=== PATIENT | male | born 1950 | race Caucasian/White ===

== ENCOUNTER 2018-07-16 15:58 | Inpatient (IN) | payer MEDICARE, OTHER ==
[~2018-07-16] VITALS: Ht 182.9 cm; Wt 95.3 kg
--- NOTE | ~2018-07-16 | MORECARE ---
CASE MANAGEMENT DISCHARGE SUMMARY PATIENT: HANNAH SOLOMON UNIT: [id number] ADM DATE: 07/16/18 AGE: 68 : 51 SEX: M ROOM/BED: D.2216 AUTHOR: EMILIANA FORBES PHYSICIAN: REFERRING PHYSICIAN: SIMONE CATALAN MD DATE OF SERVICE: 07/17/18 Discharge Plan Patient Name: HANNAH SOLOMON Facility: [facility]:[place] : 1950 Planned Disposition: Home Anticipated Discharge Date: Discharge Date: Expected LOS: Initial Reviewer: [email or web address] Initial Review Date: 07/16/2018 Generated: 07/17/18 5:50 pm Comments DCP- Discharge Planning Updated by [email or web address]: Rubi Carey on 07/17/18 3:[address] Patient Name: HANNAH SOLOMON Admission Status: Urgent Accout number: [id number] Admission Date: 07-16-2018 : 1950 Admission Diagnosis: Attending: SIMONE CATALAN Current LOS: 1 Anticipated DC Date: Planned Disposition: Home Primary Insurance: MEDICARE A & B Discharge Planning Comments: CM met with patient to assess discharge planning needs. 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 He is independent with his care. He does not use any DME or HH services and does not want any at discharge unless needed. His home is safe to return. CM will continue to follow and assist with DC planning as needed Naval Aircrewman Tactical Helicopter: Rubi Carey DCPIA - Discharge Planning Initial Assessment Updated by [email or web address]: Rubi Carey on 07/17/18 4:41 pm * Is the patient Alert and Oriented? Yes * How many steps to enter\exit or inside your home? * PCP Syrian * [facility]acy [facility] * Preadmission Environment Home with Family * ADLs Independent * Equipment None * List name and contact numbers for known caregivers / representatives who currently or will assist patient after discharge: Dilma () [phone] * Verbal permission to speak to the caregivers and representatives has been obtained from the patient. Yes * Community resources currently utilized None * Additional services required to return to the preadmission environment? No * Can the patient safely return to the preadmission environment? Yes * Has this patient been hospitalized within the prior 30 days at any hospital? No Patient Name: HANNAH SOLOMON Page [id number] at 1650 All edits/amendments must be made on the electronic document DICTATION DATE: 07/17/181649 SALES AGENT: DES 07/17/181649 RPT#: [id number] DC DATE: STATUS: ADM IN [facility] [address] [place] [address] END OF REPORT
--- NOTE | ~2018-07-16 | HP ---
PATIENT: HANNAH SOLOMON MEDICAL RECORD: [id number] ACCOUNT: [id number] LOCATION:[facility] : [birth year] ADMISSION DATE: 07/16/18 PCP: SIMONE CATALAN MD HISTORY AND PHYSICAL EXAMINATION REASON FOR ADMISSION: Cough and fever. HISTORY OF PRESENT ILLNESS: The patient is a 68-year-old male who noticed, approximately 2 months ago, cough and congestion. He stopped at a local clinic on [address]. He had a chest x-ray and an EKG. He said that were normal and was given a steroid shot and placed on Augmentin 875 b.i.d. for 10 days. He took his medications compliantly, but states that he did not really improve. He has continued to have cough. In the last 5 days, he has had increasing fever and night sweats at night. He has cough on occasion and he has noticed that he will actually cough up undigested food. He just does not feel well and now has poor appetite. PAST MEDICAL HISTORY: He had remote adenocarcinoma of the breast, post excision; history of depression, severe; erectile dysfunction; PTSD; hyperlipidemia; essential hypertension; hypothyroidism; history of elevated PSA. HOME MEDICATIONS: Levothyroxine 0.125 mg q.a.m. a.c. breakfast, losartan HCT 100/12.5 one p.o. q.a.m., and Xanax 0.5 one-half to one at bedtime for sleep. He had been on tamoxifen in the past and that has been discontinued by Dr. Kohli. PAST SURGICAL HISTORY: Cancer of the right breast in [address] Francis Lewis. FAMILY HISTORY: Brother of suicide at age 45, which he witnessed. Otherwise unremarkable. ALLERGIES: None known. SOCIAL HISTORY: Nonsmoker and nondrinker. He is , retired, and very active in the [employer] at [facility]. REVIEW OF SYSTEMS: GENERAL: Intermittent fever for the last 5 days, as high as 101; fatigue; and poor appetite. HEENT: No recent visual change, sinus congestion, or sore throat. RESPIRATORY: He has had mild short of breath on exertion. He has had dry cough and occasionally has coughed up undigested food. His sputum has been off color, but no signs of hemoptysis. He has difficulty to get a deep breath. CARDIAC: No exertional chest pain, claudication, or edema. GASTROINTESTINAL: He has had intermittent nausea without vomiting. No diarrhea. No abdominal pain. GENITOURINARY: Nocturia once nightly. No dysuria. MUSCULOSKELETAL: He has arthralgia in the lumbar spine without sciatica. ENDOCRINE: Denies polyuria, polydipsia, heat or cold intolerance. NEUROLOGIC: Denies headache, history of seizures, or memory loss. INTEGUMENT: No rash or itching. PSYCHIATRIC: Admits to chronically depressed mood, but currently he is fairly well controlled. HISTORY AND PHYSICAL [id number] HANNAH SOLOMON PHYSICAL EXAMINATION: VITAL SIGNS: His temperature is 99 degrees Fahrenheit, pulse is 97 and regular, and respirations are 18. His O2 sat is 97% on room air. He weighs 210 pounds, was 201 in January of this year. Blood pressure 140/100. Height 74 inches. BMI of 27. GENERAL: The patient is alert and oriented. He appears mildly ill. Eyes are clear. Oropharynx is unremarkable. NECK: Supple. CHEST: Decreased breath sounds in the right base. No rales noted. No wheezes noted. Left lung is clear. HEART: Regular without murmur. ABDOMEN: Soft and nontender. He has postsurgical changes over the right wrist from previous surgery. No axillary masses felt. EXTREMITIES: No CCE. NEUROLOGIC: Oriented to person, place, and time. Cranial nerves are intact. Gait is normal. DIAGNOSTIC DATA: Chest x-ray shows layering right lower lobe infiltrate versus effusion. ASSESSMENT: 1. Right lower lobe pneumonia, failing outpatient therapy. 2. Right pleural effusion. 3. Possible aspiration pneumonia. 4. History of right breast cancer. 5. Essential hypertension, uncontrolled. 6. Hyperlipidemia. 7. Hypothyroidism. 8. Depression. PLAN: The patient will be admitted to [facility] for IV antibiotics, cultures, updrafts, and pulmonary consult. The patient may require thoracentesis. TRANSINT:[id number] Voice Confirmation ID: [id number] DOCUMENT ID: [id number] SIMONE CATALAN MD at 0602 CC: [id number] DICTATION DATE: 07/16/181711 WEAVER HAND: 07/16/18 1825 ADM IN [place] [id number]
--- NOTE | ~2018-07-16 | MORECARE ---
CASE MANAGEMENT DISCHARGE SUMMARY PATIENT: HANNAH SOLOMON UNIT: [id number] ADM DATE: 07/16/18 AGE: 68 : 51 SEX: M ROOM/BED: D.2216 AUTHOR: EMILIANA FORBES PHYSICIAN: REFERRING PHYSICIAN: SIMONE CATALAN MD DATE OF SERVICE: 07/20/18 Discharge Plan Patient Name: HANNAH SOLOMON Facility: [facility]:[place] : 1950 Planned Disposition: Home Anticipated Discharge Date: Discharge Date: Expected LOS: Initial Reviewer: [email or web address] Initial Review Date: 07/16/2018 Generated: 07/20/18 1:31 pm Comments DCP- Discharge Planning Updated by [email or web address]: Rubi Carey on 07/20/18 11:[address] PATIENT DISCHARGING HOME TODAY, AT BEDSIDE. OP SPEECH IS ORDERED AND MERRICK WILL CALL THE PATIENT ON MONDAY TO SET UP A TIME FOR HIM TO COME IN FOR HIS EVALUATION. CM WILL CONTINUE TO FOLLOW NEEDED DCP- Discharge Planning Updated by [email or web address]: Rubi Carey on 07/20/18 11:[address] imm served and explained DCP- Discharge Planning Updated by [email or web address]: Rubi Carey on 07/17/18 3:[address] Patient Name: HANNAH SOLOMON Admission Status: Urgent Accout number: [id number] Admission Date: 07-16-2018 : 1950 Admission Diagnosis: Attending: SIMONE CATALAN Current LOS: 1 Anticipated DC Date: Planned Disposition: Home Primary Insurance: MEDICARE A & B Discharge Planning Comments: CM met with patient to assess discharge planning needs. 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 He is independent with his care. He does not use any DME or HH services and does not want any at discharge unless needed. His home is safe to return. CM will continue to follow and assist with DC planning as needed Loom Control Chain Builder: Rubi Carey DCPIA - Discharge Planning Initial Assessment Updated by [email or web address]: Rubi Carey on 07/17/18 4:41 pm * Is the patient Alert and Oriented? Yes * How many steps to enter\exit or inside your home? * PCP Ukrainian * [facility] * Preadmission Environment Home with Family * ADLs Independent * Equipment None * List name and contact numbers for known caregivers / representatives who currently or will assist patient after discharge: Dilma () [phone] * Verbal permission to speak to the caregivers and representatives has been obtained from the patient. Yes * Community resources currently utilized None * Additional services required to return to the preadmission environment? No * Can the patient safely return to the preadmission environment? Yes * Has this patient been hospitalized within the prior 30 days at any hospital? No Coverage Notice Reviewer: [email or web address] Jonn Carey Notice Issued Date-Time: 07/20/2018 12:00 Notice Type: IM Discharge Notice Notice Delivered To: Patient Relationship to Patient: Regional Sales Executive Name: Delivery Method: HAND - Hand Delivered Smith[place] Days: Prior Verbal Notification: Recipient Understood Notice: Yes Recipient Signature: Yes Med Rec Note Co-signed by Attending: Coverage Notice Comment: Last DP export: 07/20/18 11:23 a Patient Name: HANNAH SOLOMON Page [phone] at 1231 All edits/amendments must be made on the electronic document DICTATION DATE: 07/20/18 1231 FARM ASSISTANT: DES 07/20/18 1231 RPT#: [id number] DC DATE: STATUS: ADM IN [facility] [address] [place] [address] END OF REPORT
--- NOTE | ~2018-07-16 | MORECARE ---
CASE MANAGEMENT DISCHARGE SUMMARY PATIENT: HANNAH SOLOMON UNIT: [id number] ADM DATE: 07/16/18 AGE: 68 : 51 SEX: M ROOM/BED: D.2216 AUTHOR: EMILIANA FORBES PHYSICIAN: REFERRING PHYSICIAN: SIMONE CATALAN MD DATE OF SERVICE: 07/20/18 Discharge Plan Patient Name: HANNAH SOLOMON Facility: [facility]:[place] : 1950 Planned Disposition: Home Anticipated Discharge Date: Discharge Date: Expected LOS: Initial Reviewer: [email or web address] Initial Review Date: 07/16/2018 Generated: 07/20/18 1:23 pm Comments DCP- Discharge Planning Updated by [email or web address]: Rubi Carey on 07/20/18 11:[address] imm served and explained DCP- Discharge Planning Updated by [email or web address]: Rubi Carey on 07/17/18 3:[address] Patient Name: HANNAH SOLOMON Admission Status: Urgent Accout number: [id number] Admission Date: 07-16-2018 : 1950 Admission Diagnosis: Attending: SIMONE CATALAN Current LOS: 1 Anticipated DC Date: Planned Disposition: Home Primary Insurance: MEDICARE A & B Discharge Planning Comments: CM met with patient to assess discharge planning needs. 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 He is independent with his care. He does not use any DME or HH services and does not want any at discharge unless needed. His home is safe to return. CM will continue to follow and assist with DC planning as needed Care Program Director: Rubi Carey DCPIA - Discharge Planning Initial Assessment Updated by [email or web address]: Rubi Carey on 07/17/18 4:41 pm * Is the patient Alert and Oriented? Yes * How many steps to enter\exit or inside your home? * PCP Romanian * [facility] * Preadmission Environment Home with Family * ADLs Independent * Equipment None * List name and contact numbers for known caregivers / representatives who currently or will assist patient after discharge: Dilma () [phone] * Verbal permission to speak to the caregivers and representatives has been obtained from the patient. Yes * Community resources currently utilized None * Additional services required to return to the preadmission environment? No * Can the patient safely return to the preadmission environment? Yes * Has this patient been hospitalized within the prior 30 days at any hospital? No Coverage Notice Reviewer: [email or web address] Jonn Carey Notice Issued Date-Time: 07/20/2018 12:00 Notice Type: IM Discharge Notice Notice Delivered To: Patient Relationship to Patient: Rn Cardiac Cath Name: Delivery Method: HAND - Hand Delivered Smitha Days: Prior Verbal Notification: Recipient Understood Notice: Yes Recipient Signature: Yes Med Rec Note Co-signed by Attending: Coverage Notice Comment: Last DP export: 07/17/18 3:50 p Patient Name: HANNAH SOLOMON Page [phone] at 1223 All edits/amendments must be made on the electronic document DICTATION DATE: 07/20/18 1222 LEAK OPERATOR PARAFFIN PLANT: DES 07/20/18 1222 RPT#: [id number] DC DATE: STATUS: ADM IN [facility] [address] [place] [address] END OF REPORT
[2018-07-16] MEDS ORDERED: SYNTHROID125 MCG PO (18:38)
[2018-07-16] MEDS ORDERED: XANAX0.5 MG PO (18:39)
[2018-07-16] MEDS ORDERED: COZAAR100 MG PO (18:39)
[2018-07-16] MEDS ORDERED: HYDROCHLOROTH12.5 M1 PO (18:39)
[2018-07-16 19:26] VITALS: BMI 28.5
[2018-07-16 20:00] VITALS: BP 140/90
[2018-07-16 22:04] LABS: BASOPHILS 0.3 % (0-2); EOSINOPHILS 2.6 % (0-7); HEMATOCRIT 41.3 % (42.0-54.0); HEMOGLOBIN 14.3 g/dL (13.5-17.5); IMMATURE GRANULOCYTES 0.3 % (0-5); LYMPHOCYTES 34.3 % (15-50); MCH 34.1 pg (26.0-34.0); MCHC 34.6 g/dL (31.0-37.0); MCV 98.6 fL (80.0-100.0); MEAN PLATELET VOLUME 12.7 fL (7.4-10.4); MONOCYTES 9.2 % (2-11); NEUTROPHILS 53.3 % (40-80); PLATELET COUNT 124 10x3/uL (130-400); RBC 4.19 10x6/uL (4.20-6.10); RDW 12.2 % (11.5-14.5); WBC 3.9 10x3/uL (4.8-10.8)
[2018-07-16 22:15] LABS: CALC OSMOLALITY 278 mosm/kg (275-300); CALCIUM 8.5 mg/dL (8.5-10.1); CARBON DIOXIDE 31.2 mmol/L (21.0-32.0); CHLORIDE - SERUM 101 mmol/L (98-107); GLUCOSE 106 mg/dL (74-106); POTASSIUM - SERUM 3.5 mmol/L (3.5-5.1); SODIUM 139 mmol/L (136-145); UREA NITROGEN 14 mg/dL (7-18); eGFR NON AFRICAN AMERICAN 79 mL/min (90-120)
[2018-07-17 01:14] LABS: APPEARANCE CLOUDY (CLEAR); BILIRUBIN NEGATIVE (NEGATIVE); COLOR YELLOW (YELLOW); GLUCOSE NEGATIVE (NEGATIVE); KETONE SMALL mg/dL (NEGATIVE); NITRITE NEGATIVE (NEGATIVE); PROTEIN NEGATIVE (NEGATIVE); SPECIFIC GRAVITY 1.015 (1.005-1.020); UROBILINOGEN NORMAL (NORMAL)
[2018-07-17 01:17] LABS: BACTERIA NONE SEEN /hpf (NONE SEEN); EPITHELIAL CELLS 0-5 /hpf (0-5); RED CELLS - URINE 0-5 /hpf (0-5); WHITE CELLS - URINE NSEEN /hpf (0-5)
[2018-07-17 05:19] VITALS: BP 144/86
[2018-07-17 13:25] VITALS: BP 122/75
[2018-07-17 21:19] VITALS: BP 138/100
[2018-07-18] VITALS: BP 142/97
[2018-07-18 05:20] LABS: % SATURATION 37 % (15-55); APTT 29.2 SECONDS (22.8-39.4); INR 1.01 (0.85-1.17); IRON 103 ug/dl (35-150); PROTIME 12.8 SECONDS (11.6-15.0); TOTAL IRON BIND CAPACITY 272 ug/dl (260-445); UNSAT IRON BIND CAPACITY 169 ug/dl (150-375)
[2018-07-18 05:35] LABS: HEMOGLOBIN 14.3 g/dL (13.5-17.5); MCH 34.3 pg (26.0-34.0); MCHC 34.9 g/dL (31.0-37.0); MCV 98.3 fL (80.0-100.0); MEAN PLATELET VOLUME 12.2 fL (7.4-10.4); PLATELET COUNT 123 10x3/uL (130-400); RBC 4.17 10x6/uL (4.20-6.10); RDW 12.5 % (11.5-14.5)
[2018-07-18 05:36] LABS: WBC 2.9 10x3/uL (4.8-10.8)
[2018-07-18 05:38] LABS: ALKALINE PHOSPHATASE 46 U/L (46-116); ALT (SGPT) 17 U/L (10-68); BILIRUBIN - TOTAL 0.73 mg/dL (0.2-1.3); CALC OSMOLALITY 277 mosm/kg (275-300); CALCIUM 8.1 mg/dL (8.5-10.1); CARBON DIOXIDE 29.3 mmol/L (21.0-32.0); CHLORIDE - SERUM 103 mmol/L (98-107); FERRITIN 237 ng/mL (3-244); GLUCOSE 119 mg/dL (74-106); LDH 129 U/L (85-227); POTASSIUM - SERUM 3.4 mmol/L (3.5-5.1); PROTEIN - SERUM 6.7 g/dL (6.4-8.2); SODIUM 140 mmol/L (136-145); UREA NITROGEN 8 mg/dL (7-18); eGFR NON AFRICAN AMERICAN 79 mL/min (90-120)
[2018-07-18 06:34] VITALS: BP 138/90
[2018-07-18 07:25] LABS: EOSINOPHILS 4 % (0-7); LYMPHOCYTES 32 % (15-50); MONOCYTES 6 % (2-11); NEUTROPHILS 56 % (40-80); PLATELET ESTIMATE NORMAL; ROULEAUX OCC
[2018-07-18 08:35] VITALS: BP 132/92
[2018-07-18 12:37] VITALS: BP 149/100
[2018-07-18 13:40] VITALS: Ht 182.9 cm; Wt 95.3 kg
[2018-07-18 17:47] VITALS: BP 142/96
[2018-07-18 20:00] VITALS: BP 118/94
[2018-07-19 04:49] VITALS: BP 135/83
[2018-07-19 08:33] VITALS: BP 143/83
[2018-07-19 12:00] VITALS: BP 125/93
[2018-07-19 16:20] VITALS: BP 124/67
[2018-07-19 20:00] VITALS: BP 97/63
[2018-07-20] VITALS: BP 109/70
[2018-07-20 04:00] VITALS: BP 114/75
[2018-07-20 06:13] LABS: BASOPHILS 0 % (0-2); EOSINOPHILS 3.5 % (0-7); HEMATOCRIT 39.8 % (42.0-54.0); HEMOGLOBIN 13.6 g/dL (13.5-17.5); LYMPHOCYTES 33.6 % (15-50); MCH 33.9 pg (26.0-34.0); MCHC 34.2 g/dL (31.0-37.0); MCV 99.3 fL (80.0-100.0); MEAN PLATELET VOLUME 13.2 fL (7.4-10.4); MONOCYTES 12.7 % (2-11); NEUTROPHILS 50.2 % (40-80); PLATELET COUNT 120 10x3/uL (130-400); RBC 4.01 10x6/uL (4.20-6.10); RDW 12.4 % (11.5-14.5); WBC 2.8 10x3/uL (4.8-10.8)
[2018-07-20 09:03] VITALS: BP 145/97
[2018-07-20] MEDS ORDERED: CLEOCIN HCL300 MG PO (12:09)
[2018-07-20] MEDS ORDERED: LEVAQUIN750 MG PO (12:10)
[2018-07-20] MEDS ORDERED: MUCINEX DM ER1 EAC1 PO (12:11)
[2018-07-20] MEDS ORDERED: FLORAJEN3 CAPS460 MG PO (12:11)
[2018-07-20] MEDS ORDERED: FLOMAX0.4 MG PO (12:12)
[2018-07-20 12:33] VITALS: BP 125/84
== END 2018-07-20 13:58 | disposition home or self-care (01) | DRG 179 ==
LOC: D.MS 15:58 → D.SDCHOLD 15:58 → D.MS 17:02
PROVIDERS: Family Medicine; Internal Medicine Pulmonary Disease
DX: J69.0 Pneumonitis due to inhalation of food and vomit (principal); F43.12 Post-traumatic stress disorder, chronic; F32.89 Other specified depressive episodes; E78.5 Hyperlipidemia, unspecified; I10 Essential (primary) hypertension; D69.6 Thrombocytopenia, unspecified; D72.819 Decreased white blood cell count, unspecified; D69.59 Other secondary thrombocytopenia; T36.95XA Adverse effect of unspecified systemic antibiotic, initial encounter

== ENCOUNTER → 2018-07-25 13:11 | Outpatient (CLI) | payer MEDICARE, OTHER ==
[2018-07-18 13:40] VITALS: BMI 28.5
[~2018-07-25 13:11] MED LIST: CLEOCIN HCL300 MG PO; COZAAR100 MG PO; FLOMAX0.4 MG PO; FLORAJEN3 CAPS460 MG PO; HYDROCHLOROTH12.5 M1 PO; LEVAQUIN750 MG PO; MUCINEX DM ER1 EAC1 PO; SYNTHROID125 MCG PO; XANAX0.5 MG PO
== END | disposition home or self-care (01) ==
LOC: D.CT 13:11
DX: R13.10 Dysphagia, unspecified (principal)

== ENCOUNTER → 2018-07-30 14:57 | Outpatient (CLI) | payer MEDICARE, OTHER ==
[2018-07-18 13:40] VITALS: BMI 28.5
== END | disposition home or self-care (01) ==
LOC: D.CT 14:57
DX: R91.8 Other nonspecific abnormal finding of lung field (principal); Z85.3 Personal history of malignant neoplasm of breast